=== PATIENT | male | born 1965 | race Caucasian/White ===

== ENCOUNTER 2021-10-02 12:27 | Emergency (ER) | payer OTHER ==
[~2021-10-02] VITALS: Ht 167.6 cm; Wt 81.7 kg
[2021-10-02] MEDS ORDERED: NASACORT10.8 ML NAS (15:37)
--- NOTE | 2021-10-02 20:29 | EKG ---
[facility] [address] [facility] [place] [address] Signed Normal sinus rhythm Rightward axis Borderline ECG No previous ECGs available Confirmed by FRANKO COSTA MD ([id number]) on 10/02/2021 8:28:59 PM Electronically Signed By: FRANKO COSTA MD 10/02/212028 PATIENT NAME: ZURI GUPTA Electrocardiogram DATE OF : 69 PHYSICIAN: FRANKO COSTA MD REPORT #: [id number] REPORT IS CONFIDENTIAL AND NOT TO BE RELEASED WITHOUT AUTHORIZATION
== END 2021-10-02 15:37 | disposition home or self-care (01) ==
LOC: ED 12:27
DX: H81.399 Other peripheral vertigo, unspecified ear (principal); Z86.19 Personal history of other infectious and parasitic diseases
CPT/HCPCS: 70450; 71045; 80053; 83735; 84484; 85025; 93005; 93010; 99284-25

== ENCOUNTER 2023-11-05 05:34 | Day surgery (SDC) | payer OTHER ==
[~2023-11-05] VITALS: Ht 167.6 cm; Wt 81.7 kg
--- NOTE | ~2023-11-05 | OR ---
[facility] [address] [place], [place] [address] Draft DATE OF OPERATION: 11/05/2023 SURGEON: Leonardo Del Cid MD PREOPERATIVE DIAGNOSIS: Left deep submuscular lipoma, volar forearm. POSTOPERATIVE DIAGNOSIS: Left deep submuscular lipoma, volar forearm. PROCEDURE: Excision of left volar forearm deep submuscular lipomatous mass 6 cm. ANESTHESIA: Left axillary block and general LMA type anesthetic (Jen Bray CRNA). INDICATION: This 58-year-old white man is a prisoner at [facility] [employer] [employer]. He was referred by SAMANTHA Coello for an impressively large deep forearm soft tissue mass. Imaging studies including MRI showed the lesion likely to be lipomatosis. Given its impressive distortion of the flexor compartment muscles in the left forearm and possibility of malignancy (sarcoma), he underwent incisional biopsy of the mass on March 05, 2023. 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 Given its large size and though present for quite some time (possibly 14 years), excision has been offered. The risk of bleeding, infection, nerve or tendon injury, arterial injury, and of course, recurrence were all reviewed with him. He understands and wished to proceed. FINDINGS: The soft tissue mass was consistent with benign lipoma. It is well circumscribed. It was beneath the flexor muscle compartment in the distal left forearm extending deep to the interosseous muscular compartment. Complete excision was accomplished. It measured 6.5 cm in total size. DESCRIPTION OF PROCEDURE: The patient was brought to the operating room having undergone a left axillary block and given a general LMA type anesthetic. Preoperative antibiotic Ancef was given. A tourniquet was applied above the elbow and the left hand and forearm were exsanguinated with an Esmarch bandage. The tourniquet was taken up to 200 mmHg. Good exsanguination of the left arm was noted. The forearm and hand were then prepared with a chlorhexidine solution and draped sterilely. The palpable mass was quite obvious in the volar aspect PATIENT NAME: ZURI GUPTA OPERATIVE REPORT DATE OF : 69 REPORT #: [id number] PHYSICIAN: LEONARDO DEL CID MD PCP: MALCOLM TAVERAS REPORT IS CONFIDENTIAL AND NOT TO BE RELEASED WITHOUT AUTHORIZATION [facility] [address] [place], [place] [address] Draft of the distal forearm. Malleable hand retractor was applied as was a blue towel allowing for wrist extension. The previous incision was deemed appropriate and this was incised with a 15 blade. Dissection carried through the subcutaneous tissue with all due care. A large obvious cutaneous nerve was identified and avoided. Dissection was carried to the fibrous tissue of the forearm, encountering ultimately the lipomatous mass. This was bluntly freed superiorly and inferiorly and muscle compartment retracted medially. Using tenotomy scissors and meticulous care, the lesion was dissected free from the surrounding soft tissue. It did not have an infiltrative appearance and is rather smooth. It was connected to the intramuscular septum deeply. It was freed laterally as well and ultimately excised completely. Cautery was used for those areas likely to have blood vessels supplying it. Cautery was used to the muscular fibers that had been for benefit of hemostasis. The tourniquet was taken down at 21 minutes allowing for observation of the deep soft tissues. Good hemostasis was noted overall. Minimal amounts of cautery were required. Irrigation was undertaken and some Jackeline hemostatic powder agent was applied to the deep space. The superficial fascia of the forearm was then reapproximated with interrupted 2-0 Vicryl including the dermal layer. Additional closure was deemed . Good hemostasis was noted. Steri-Strips were applied after application of 3 mL of 0.25% Marcaine without epinephrine. Acticoat dressing was applied as was an Bruno wrap. The patient was allowed to emerge from anesthesia, extubated, and taken to recovery room in good condition. Blood loss was minimal. MD OLGA Amador/WAN /[id number] cc: SAMANTHA Pruitt Copies: MALCOLM TAVERAS PATIENT NAME: ZURI GUPTA OPERATIVE REPORT DATE OF : 69 REPORT #: [id number] PHYSICIAN: LEONARDO DEL CID MD PCP: MALCOLM TAVERAS REPORT IS CONFIDENTIAL AND NOT TO BE RELEASED WITHOUT AUTHORIZATION [address] [address] Draft ~ PATIENT NAME: ALONSOZURIFAY WEBER OPERATIVE REPORT DATE OF : 69 REPORT #: [id number] PHYSICIAN: LEONARDO DEL CID MD PCP: MALCOLM TAVERAS REPORT IS CONFIDENTIAL AND NOT TO BE RELEASED WITHOUT AUTHORIZATION
[~2023-11-05 05:34] MED LIST: ACETAMINOPHEN500 MG PO; HYDROCODON-ACE1 EA10 PO; IBUPROFEN600 MG PO; MECLIZINE HCL25 M1 PO; NASACORT10.8 ML NAS
[2023-11-05 06:04] VITALS: BP 131/92
--- NOTE | 2023-11-05 08:50 | NUR ---
11/05/23 0850 Sheets,Ivon 0896 PT ARRIVED TO PACU ON 6L VIA MASK AND ORAL AIRWAY IN PLACE. RESP EVEN AND UNLABORED. JAW THRUST USED OFF AND ON TO MAINTAIN AIRWAY. 0837 PT WAKES AND OPENS HIB EYES LOOKING AT RN. ORAL AIRWAY REMOVED AND PT FOLLOW COMMANDS TO OPEN HIS MONTH. O2 MASK REMOVED AND PT REORIENTED TO PACU. PT DENIES PAIN AND NAUSEA. PT RPEORTS "I CAN'T FEEL IT." BLOCK EDUCATION GIVEN. 0845 HOB INCEASED AND PT MOVING ARM. RN ENCOURAGES PT TO REST ARM, ARM HAS UNCOORDINATED MOVEMENTS, SLING IN PLACE FROM OR.
[2023-11-05] MEDS ORDERED: TYLENOL EXTRA500 MG PO (08:52)
[2023-11-05] MEDS ORDERED: MOTRIN IB200 MG PO (08:52)
[2023-11-05] MEDS ORDERED: HYDROCODON-ACE1 EA10 PO (08:52)
[2023-11-05 09:00] VITALS: BP 122/84
[2023-11-05 10:00] VITALS: BP 115/87
--- NOTE | 2023-11-05 10:17 | NUR ---
LE 09 PT ARRIVED FROM PACU WIDE AWAKE WITH NO C/O'S. L ARM IN SLING. 09 TRANSPORT GUARDS AT BEDSIDE. WATER GIVEN. 1000 VITAL SIGNS TAKEN. UP TO BATHROOM. VOIDED LG AMOUNT. IN ROOM GETTNG DRESSED. 1010 DC INSTRUCTIONS GIVEN. LEFT VIA W/C WITH GUARDS. 1020 REPORT CALLED TO [facility].
--- NOTE | 2023-11-07 15:41 | PATH ---
[facility] [address] [facility] [place] [address] Signed SPECIMEN(S): A LEFT VOLAR SUBMUSCULAR LIPOMA SPECIMEN SOURCE: A. LEFT VOLAR SUBMUSCULAR LIPOMA CLINICAL HISTORY: Left volar submucosal lipoma. Neoplasm of left volar wrist. FINAL PATHOLOGIC DIAGNOSIS: Left volar submuscular lipoma: - [place] lobulated adipose tissue consistent with lipoma. JVR:niki MICROSCOPIC EXAMINATION: Histologic sections of all submitted blocks are examined by light microscopy. These findings, together with the gross examination, support the pathologic diagnosis. GROSS DESCRIPTION: The specimen, labeled and designated "Andrey, left volar submuscular lipoma," is received in formalin and consists of yellow-tinsley, soft, smooth fibroadipose tissue fragment that measure 5.5 x 4.5 x 4.0 cm. Specimen is inked. Sectioning through the specimen to reveal regular adipose tissue surrounded with a thin capsule. Director Hedis sections are submitted in (A1-A3). JS (under the direct supervision of a pathologist) The Gross Description was prepared using a voice recognition system. The report was reviewed for accuracy; however, sound-alike word errors, addition and/or deletions may occur. If there is any question about this report, please contact Client Services. PERFORMING LABORATORY: Technical component was performed by [facility], [address] [place] [id number] (CLIA# [id number]). Professional interpretation was performed by [facility], [address] [place] [id number] (CLIA#: [id number]). Diagnostician: Benigno Marie MD Pathologist Electronically Signed 11/07/2023 PATIENT NAME: ZURI GUPTA PATHOLOGY DATE OF : 69 REPORT #: [id number] PHYSICIAN: MARCO ANTONIO PATHOLOGY PCP: MALCOLM TAVERAS REPORT IS CONFIDENTIAL AND NOT TO BE RELEASED WITHOUT AUTHORIZATION [address] [place], [place] [address] Signed Copies: ~ PATIENT NAME: ZURI GUPTA PATHOLOGY DATE OF : 69 REPORT #: [id number] PHYSICIAN: MARCO ANTONIO PATHOLOGY PCP: MALCOLM TAVERAS REPORT IS CONFIDENTIAL AND NOT TO BE RELEASED WITHOUT AUTHORIZATION
== END 2023-11-05 10:10 | disposition home or self-care (01) ==
LOC: DS 05:34
PROVIDERS: ATTEND Surgery
PROC: 0JBF0ZZ Excision of Left Upper Arm Subcutaneous Tissue and Fascia, Open Approach (ICD-10-PCS; principal; 2023-11-05 07:30)
DX: D17.9 Benign lipomatous neoplasm, unspecified (principal); D12.3 Benign neoplasm of transverse colon
CPT/HCPCS: 01810; 64417; J0690; J1100; J1644; J1885; J2001; J2250; J2405; J2704; J2795; J7121